=== PATIENT | male | born 1985 | race Hispanic/Latino ===

== ENCOUNTER 2019-02-20 20:15 | Emergency (ER) | payer MEDICAID ==
[2019-02-20 21:07] LABS: BASOPHILS % (AUTO) 0.3 % (0.0-5.0); EOSINOPHILS % (AUTO) 3.2 % (0.0-8.0); HEMATOCRIT 38.7 % (42-54); LYMPHOCYTES % (AUTO) 29.6 % (21.0-51.0); MEAN CORPUSCULAR HEMOGLOBIN 30.1 pg (27.0-33.0); MEAN CORPUSCULAR VOLUME 88.5 fL (79-99); MONOCYTES % (AUTO) 10.6 % (3.0-13.0); NEUTROPHILS % (AUTO) 56.3 % (40.0-77.0); NUCLEATED RED BLOOD CELLS 0.1 % (0.0-0.19); PLATELET COUNT (AUTO) 159 K/uL (130-400); RED BLOOD CELL COUNT(AUTO) 4.37 MIL/uL (4.50-6.20); RED CELL DISTRIBUTION WIDTH 13.8 % (11.0-15.5); WHITE BLOOD COUNT (AUTO) 4.4 K/uL (4.8-10.8)
[2019-02-20] MEDS ORDERED: MORPHINE SULFATE 4 MG/1ML SYG ONE (21:09)
[2019-02-20 21:20] LABS: POTASSIUM 3.8 mmol/L (3.5-5.1)
[2019-02-20] MEDS ORDERED: LIDOCAINE 2%-EPI 1:200,000 20 ML VIAL IJ ONE (21:22)
[2019-02-20 21:25] LABS: ALBUMIN 3.1 g/dL (3.5-5.0); BILIRUBIN,DIRECT 0.1 mg/dL (0.0-0.3); BILIRUBIN,TOTAL 0.2 mg/dL (0.2-1.0); TOTAL PROTEIN, SERUM 6.3 g/dL (6.0-8.3)
[2019-02-20] MEDS ORDERED: DOXYCYCLINE 100MG+NS 250ML 250 ML IV ONE (21:47)
[2019-02-20] MEDS ORDERED: CEFAZOLIN SODIUM 1 GM VIAL ONE (21:47)
[2019-02-20] MEDS ORDERED: SODIUM CHLORIDE 0.9% 50 ML IV ONE (21:48)
== END 2019-02-20 23:24 | disposition home or self-care (01) ==
LOC: EDH 20:15
DX: S50.351A Superficial foreign body of right elbow, initial encounter (principal); L03.113 Cellulitis of right upper limb; Z72.0 Tobacco use; F31.9 Bipolar disorder, unspecified; W26.8XXA Contact with other sharp object(s), not elsewhere classified, initial encounter; Y93.89 Activity, other specified; Y92.89 Other specified places as the place of occurrence of the external cause; Y99.8 Other external cause status
CPT/HCPCS: 10120; 36415; 73080; 80053; 80076; 83605; 85025; 85651; 86140; 87040 ×2; 87070; 87076; 87077; 87186; 96365; 96375; 99285; J0690; J2270; J3490 ×2

== ENCOUNTER 2020-08-05 21:01 | Emergency (ER) | payer MEDICAID ==
[2020-08-05] MEDS ORDERED: KETOROLAC 30MG VIAL (30MG/ML) ONE (21:27)
[2020-08-05] MEDS ORDERED: HYDROCODONE/ACETAMINOPHEN 5/325 MG TAB ONE (21:28)
[2020-08-05] MEDS ORDERED: TETANUS/DIPHTHERIA TOXOID [ADULT] 0.5 ML VIAL IM ONE (22:01)
== END 2020-08-05 22:21 | disposition home or self-care (01) ==
LOC: EDH 21:01
DX: S20.211A Contusion of right front wall of thorax, initial encounter (principal); R07.81 Pleurodynia; F31.9 Bipolar disorder, unspecified; Z72.0 Tobacco use; W01.0XXA Fall on same level from slipping, tripping and stumbling without subsequent striking against object, initial encounter; Y93.39 Activity, other involving climbing, rappelling and jumping off; Y92.89 Other specified places as the place of occurrence of the external cause; Y99.8 Other external cause status
CPT/HCPCS: 71250; 90471; 90714; 99284; J1885